=== PATIENT | female | born 1940 | race Caucasian/White ===

== ENCOUNTER 2017-01-12 10:48 | Day surgery (SDC) | payer OTHER ==
[~2017-01-12] VITALS: Ht 147.3 cm; Wt 73.9 kg
[~2017-01-12 10:48] MED LIST: ADVAIR 500/501 DISK IH; ATIVAN1 MG PO; BUSPAR5 MG PO; ENDOCET 5-3251 EACH PO; EXFORGE HCT 101 EAC1 PO; LO-DOSE ASPIRIN81 M2 PO; MARTEN-TAB 3251 EACH PO; MUCINEX DM ER1 EACH PO; NITROSTAT0.4 MG SL; PAXIL40 MG PO; PEPCID AC10 MG PO; PREDNISONE10 MG PO; PROCARDIA XL30 MG PO; PROTONIX40 MG PO; SINGULAIR10 MG PO; SPIRIVA RESPIMAT4 GM IH; THEO-24300 MG PO
[2017-01-12] MEDS ORDERED: BREO ELLIPTA 21 EACH IH (11:41)
[2017-01-16] MEDS ORDERED: GAS-X125 M1 PO (14:23)
== END 2017-01-12 12:56 | disposition home or self-care (01) ==
LOC: PAIN 10:48 → SDC 11:00 → PAIN 11:00
PROC: 015B3ZZ Destruction of Lumbar Nerve, Percutaneous Approach (ICD-10-PCS; principal; 2017-01-12)
DX: M47.816 Spondylosis without myelopathy or radiculopathy, lumbar region (principal); M54.5 Low back pain; F41.9 Anxiety disorder, unspecified; M51.36 Other intervertebral disc degeneration, lumbar region; M47.892 Other spondylosis, cervical region; G43.909 Migraine, unspecified, not intractable, without status migrainosus; M46.1 Sacroiliitis, not elsewhere classified; J44.9 Chronic obstructive pulmonary disease, unspecified; I10 Essential (primary) hypertension; E78.5 Hyperlipidemia, unspecified; F17.200 Nicotine dependence, unspecified, uncomplicated; Z79.82 Long term (current) use of aspirin; Z88.8 Allergy status to other drugs, medicaments and biological substances
CPT/HCPCS: J1030; J2250; J3010; S0020

== ENCOUNTER 2017-01-19 10:48 | Day surgery (SDC) | payer OTHER ==
[~2017-01-19] VITALS: Ht 147.3 cm; Wt 73.9 kg
[~2017-01-19 10:48] MED LIST changes: +BREO ELLIPTA 21 EACH IH; +GAS-X125 M1 PO
== END 2017-01-19 12:50 | disposition home or self-care (01) ==
LOC: PAIN 10:48 → SDC 11:00 → PAIN 11:00
PROC: 015B3ZZ Destruction of Lumbar Nerve, Percutaneous Approach (ICD-10-PCS; principal; 2017-01-19)
DX: M47.816 Spondylosis without myelopathy or radiculopathy, lumbar region (principal); M54.5 Low back pain; F41.9 Anxiety disorder, unspecified; M51.36 Other intervertebral disc degeneration, lumbar region; M47.892 Other spondylosis, cervical region; G43.909 Migraine, unspecified, not intractable, without status migrainosus; M46.1 Sacroiliitis, not elsewhere classified; Z88.1 Allergy status to other antibiotic agents; Z88.2 Allergy status to sulfonamides; Z88.0 Allergy status to penicillin
CPT/HCPCS: J1030; J2250; J3010; S0020

== ENCOUNTER 2017-05-23 11:34 | Day surgery (SDC) | payer OTHER ==
[~2017-05-23] VITALS: Ht 152.4 cm; Wt 69.9 kg
[2017-05-23] MEDS ORDERED: PERCOCET 7.51 TABLET PO (12:12)
[2017-05-23] MEDS ORDERED: PROAIR HFA8.5 GM IH (12:15)
== END 2017-05-23 13:10 | disposition home or self-care (01) ==
LOC: PAIN 11:34
DX: M47.812 Spondylosis without myelopathy or radiculopathy, cervical region (principal); M54.2 Cervicalgia; M47.26 Other spondylosis with radiculopathy, lumbar region; I10 Essential (primary) hypertension; F41.8 Other specified anxiety disorders; K21.9 Gastro-esophageal reflux disease without esophagitis; K58.9 Irritable bowel syndrome, unspecified; J44.9 Chronic obstructive pulmonary disease, unspecified; F17.210 Nicotine dependence, cigarettes, uncomplicated; Z79.82 Long term (current) use of aspirin; Z79.891 Long term (current) use of opiate analgesic; Z88.0 Allergy status to penicillin
CPT/HCPCS: J1030; J2250; J3010; S0020

== ENCOUNTER 2017-07-04 08:01 | Day surgery (SDC) | payer OTHER ==
[~2017-07-04] VITALS: Ht 152.4 cm; Wt 63.6 kg
[~2017-07-04 08:01] MED LIST changes: +PERCOCET 7.51 TABLET PO; +PROAIR HFA8.5 GM IH
== END 2017-07-04 10:05 | disposition home or self-care (01) ==
LOC: PAIN 08:01 → SDC 08:30 → PAIN 10:05
DX: M47.812 Spondylosis without myelopathy or radiculopathy, cervical region (principal); M54.2 Cervicalgia; G89.29 Other chronic pain; M47.26 Other spondylosis with radiculopathy, lumbar region; F41.8 Other specified anxiety disorders; J44.9 Chronic obstructive pulmonary disease, unspecified; K21.9 Gastro-esophageal reflux disease without esophagitis; I10 Essential (primary) hypertension; K58.9 Irritable bowel syndrome, unspecified; M46.1 Sacroiliitis, not elsewhere classified; F17.210 Nicotine dependence, cigarettes, uncomplicated; Z79.82 Long term (current) use of aspirin
CPT/HCPCS: J1030; J3010; S0020

== ENCOUNTER 2017-07-11 08:29 | Day surgery (SDC) | payer OTHER ==
[~2017-07-11] VITALS: Ht 152.4 cm; Wt 63.5 kg
== END 2017-07-11 10:00 | disposition home or self-care (01) ==
LOC: PAIN 08:29 → SDC 08:45 → PAIN 10:00
PROC: 01513ZZ Destruction of Cervical Nerve, Percutaneous Approach (ICD-10-PCS; principal; 2017-07-11)
DX: M47.812 Spondylosis without myelopathy or radiculopathy, cervical region (principal); F41.9 Anxiety disorder, unspecified; F17.200 Nicotine dependence, unspecified, uncomplicated; Z88.8 Allergy status to other drugs, medicaments and biological substances
CPT/HCPCS: J1030; J3010; S0020